=== PATIENT | male | born 1970 | race Hispanic/Latino ===

== ENCOUNTER 2020-05-06 23:24 | Inpatient (IN) | payer OTHER, SELFPAY ==
[2020-05-07 00:16] LABS: Absolute Lymphocytes (CBC) 3.6 K/uL (0.7-4.9); Basophils % 0.9 % (0-1.3); Hematocrit 44.7 % (39.6-49.0); Lymphocytes % 42.1 % (15.3-44.8); MPV 9.5 fL (7.6-11.3); RBC Red Blood Cell Count 5.12 M/uL (4.33-5.43)
[2020-05-07 00:17] LABS: Protime INR 0.97
[2020-05-07 00:41] LABS: ALT/SGPT 44 U/L (12-78); AST/SGOT 21 U/L (15-37); Albumin 4.3 g/dL (3.4-5.0); Alkaline Phosphatase 76 U/L (45-117); BUN Blood Urea Nitrogen 22 mg/dL (7-18); Bicarbonate 23 mmol/L (21-32); Bilirubin Direct < 0.1 mg/dL (0-0.2); Bilirubin Total 0.5 mg/dL (0.2-1.0); Glucose Level 169 mg/dL (74-106); Magnesium 2.2 mg/dL (1.8-2.4); NT PRO-BNP 9 pg/mL (<125); Potassium 3.6 mmol/L (3.5-5.1); Protein, Total 7.7 g/dL (6.4-8.2); Sodium Level 138 mmol/L (136-145); Troponin (Emerg Dept Use Only) < 0.02 ng/mL (0.0-0.045)
--- NOTE | 2020-05-07 01:09 | ER ---
Nurse's Notes [facility] Name: Jed An Age: 50 yrs Sex: Male : 1970 Arrival Date: 05/06/2020 Time: 23:25 Bed 25 Private MD: Nile Albert T Diagnosis: Chest pain Presentation: 05/06 23:34 Chief complaint: Patient states: pt states he is having chest pain, abdominal pain, bb "shocks or jolts" throughout his body today starting this morning also has a headache denies nausea, shortness of breath, dizziness. BP at home 166/100. Coronavirus screen: At this time, the client does not indicate any symptoms associated with coronavirus-19. Ebola Screen: No symptoms or risks identified at this time. Initial Sepsis Screen: Does the patient meet any 2 criteria? No. Patient's initial sepsis screen is negative. Does the patient have a suspected source of infection? No. Patient's initial sepsis screen is negative. Risk Assessment: Do you want to hurt yourself or someone else? Patient reports no desire to harm self or others. Onset of symptoms was May 06, 2020. 23:34 Method Of Arrival: Ambulatory bb 23:34 Acuity: LYSSA 3 bb Triage Assessment: 23:39 General: Appears in no apparent distress. Behavior is calm, cooperative. Pain: bb Complains of pain in chest Pain currently is 6 out of 10 on a pain scale. Neuro: Level of Consciousness is awake, alert, obeys commands, Oriented to person, place, time, situation. Cardiovascular: Heart tones present Capillary refill < 3 seconds Patient's skin is warm and dry. Rhythm is sinus rhythm. Respiratory: Airway is patent Respiratory effort is even, unlabored, Respiratory pattern is regular. GI: Reports upper abdominal pain. Derm: Skin is pink, warm \\T\\ dry. Musculoskeletal: Circulation, motion, and sensation intact. Historical: - Allergies: 23:39 No Known Allergies; bb - Home Meds: 23:39 metformin 750 mg Oral Tb24 1 tab twice a day [Active]; aspirin 81 mg Oral chew 1 tab bb once daily [Active]; metoprolol tartrate 50 mg Oral tab 1 tab once daily [Active]; losartan 50 mg oral tab 1 tab once daily [Active]; - PMHx: 23:39 Diabetes - NIDDM; Hypertension; bb - PSHx: 23:39 Heart stents; heart balloon; bb - Immunization history:: Adult Immunizations up to date. - Social history:: Smoking status: Patient denies any tobacco usage or history of. Patient uses alcohol, Patient/guardian denies using street drugs. Screenin:41 Abuse screen: Denies threats or abuse. Nutritional screening: No deficits noted. bb Tuberculosis screening: No symptoms or risk factors identified. Fall Risk None identified. Assessment: 23:41 Reassessment: No changes from previously documented assessment. see triage assessment. bb 05/07 00:28 General: Appears in no apparent distress. comfortable, Behavior is calm, cooperative. mg2 Pain: Complains of pain in chest Pain radiates to whole body Pain currently is 2 out of 10 on a pain scale. Quality of pain is described as aching, Pain began gradually, Is intermittent. Neuro: Level of Consciousness is awake, alert, obeys commands, Oriented to person, place, time, situation. Cardiovascular: Capillary refill < 3 seconds Patient's skin is warm and dry. Respiratory: Airway is patent Respiratory effort is even, unlabored, Respiratory pattern is regular, symmetrical. GI: No signs and/or symptoms were reported involving the gastrointestinal system. : No signs and/or symptoms were reported regarding the genitourinary system. EENT: No signs and/or symptoms were reported regarding the EENT system. Derm: Skin is intact, is healthy with good turgor, Skin is pink, warm \\T\\ dry. normal. Musculoskeletal: Circulation, motion, and sensation intact. Capillary refill < 3 seconds. 01:09 Reassessment: seen by MALATHI Ybarra-hospitalist. advised for admission. patient agreed. mg2 Vital Signs: 05/06 23:34 BP 164 / 89; Pulse 77; Resp 16 S; Temp 97.7(O); Pulse Ox 100% on R/A; Weight 99.34 kg bb (R); Height 5 ft. 3 in. (160.02 cm) (R); Pain 12/18; 05/07 00:57 BP 140 / 91; Pulse 73; Resp 18; Pulse Ox 99% on R/A; mg2 02:20 BP 134 / 80; Pulse 61; Resp 19; Pulse Ox 99% ; rr5 05/06 23:34 Body Mass Index 38.79 (99.34 kg, 160.02 cm) ED Course: 05/06 23:25 Patient arrived in ED. am2 23:25 Nile Albert MD is Private Physician. am2 23:33 EKG completed in triage. Results shown to MD. bb 23:37 Triage completed. bb 23:39 Arm band placed on. bb 23:41 Patient has correct armband on for positive identification. bb 23:41 Patient maintains SpO2 saturation greater than 95% on room air. bb 23:50 Initial lab(s) drawn, by me, sent to lab. bb 05/07 00:09 Donte Brink, RN is Primary Nurse. mg2 00:16 XRAY Chest (1 view) In Process Unspecified. EDMS 00:17 Brad Reid MD is Attending Physician. pkl 00:29 patient monitor on. Pulse ox on. NIBP on. mg2 00:29 No provider procedures requiring assistance completed. mg2 01:08 Richardson Boone DO is Hospitalizing Provider. pkl 02:30 Inserted saline lock: 20 gauge in left forearm, using aseptic technique. rr5 02:40 covid. rr5 02:43 Patient admitted, IV remains in place. intact, No redness/swelling at site. rr5 Administered Medications: No medications were administered Outcome: 01:08 Decision to Hospitalize by Provider. pkl 02:44 Admitted to ER Hold. Please see [facility] for further documentation. rr5 02:44 Condition: stable 02:44 Instructed on the need for admit. 09:50 Patient left the ED. Signatures: Dispatcher [employer] EDDE Brad Reid MD MD pkConsuelo Jimenez RN RN bb Sofía Sigala RN RN Rehana Hatfield am2 Donte Brink, NOEMÍ DOWD mg2 Peewee Tilley, RN RN rr5
--- NOTE | 2020-05-07 01:09 | EDPHYS ---
Physician Documentation [facility] Name: Jed An Age: 50 yrs Sex: Male : 1970 Arrival Date: 05/06/2020 Time: 23:25 Bed 25 Private MD: Nile Albert T ED Physician Brad Reid HPI: 05/07 00:30 This 50 yrs old Male presents to ER via Ambulatory with complaints of Chest pkl Pain > 30 y/o, High Blood Pressure. 00:30 The patient or guardian reports chest pain that is located primarily in the substernal pkl area, epigastric area. Onset: just prior to arrival, 4 hour(s) ago. The pain does not radiate. Associated signs and symptoms: Pertinent positives: headache, having shocks all over body since this morning. The chest pain is described as a pressure. The patient has experienced a previous episode, approximately 5 years ago, when he had cardiac stents placement. Historical: - Allergies: 05/06 23:39 No Known Allergies; bb - Home Meds: 23:39 metformin 750 mg Oral Tb24 1 tab twice a day [Active]; aspirin 81 mg Oral chew 1 tab bb once daily [Active]; metoprolol tartrate 50 mg Oral tab 1 tab once daily [Active]; losartan 50 mg oral tab 1 tab once daily [Active]; - PMHx: 23:39 Diabetes - NIDDM; Hypertension; bb - PSHx: 23:39 Heart stents; heart balloon; bb - Immunization history:: Adult Immunizations up to date. - Social history:: Smoking status: Patient denies any tobacco usage or history of. Patient uses alcohol, Patient/guardian denies using street drugs. ROS: 05/07 00:30 Eyes: Negative for injury, pain, redness, and discharge, ENT: Negative for injury, pkl pain, and discharge, Neck: Negative for injury, pain, and swelling. Cardiovascular: Positive for chest pain, of the substernal and epigastric regions. Respiratory: Negative for cough, shortness of breath. Abdomen/GI: Negative for abdominal pain, nausea, vomiting, and diarrhea. Back: Negative for acute changes. : Negative for urinary symptoms. MS/extremity: Negative for acute changes. Skin: Negative for rash. Neuro: Negative for altered mental status, loss of consciousness. Exam: 00:30 Head/Face: Normocephalic, atraumatic. Eyes: Pupils equal round and reactive to light, pkl extra-ocular motions intact. Lids and lashes normal. Conjunctiva and sclera are non-icteric and not injected. Cornea within normal limits. Periorbital areas with no swelling, redness, or edema. ENT: Nares patent. No nasal discharge, no septal abnormalities noted. Tympanic membranes are normal and external auditory canals are clear. Oropharynx with no redness, swelling, or masses, exudates, or evidence of obstruction, uvula midline. Mucous membranes moist. Neck: Trachea midline, no thyromegaly or masses palpated, and no cervical lymphadenopathy. Supple, full range of motion without nuchal rigidity, or vertebral point tenderness. No Meningismus. Chest/axilla: Normal chest wall appearance and motion. Nontender with no deformity. No lesions are appreciated. Cardiovascular: Regular rate and rhythm with a normal S1 and S2. No gallops, murmurs, or rubs. Normal PMI, no JVD. No pulse deficits. Respiratory: Lungs have equal breath sounds bilaterally, clear to auscultation and percussion. No rales, rhonchi or wheezes noted. No increased work of breathing, no retractions or nasal flaring. Abdomen/GI: Soft, non-tender, with normal bowel sounds. No distension or tympany. No guarding or rebound. No evidence of tenderness throughout. Back: No spinal tenderness. No costovertebral tenderness. Full range of motion. Skin: Warm, dry with normal turgor. Normal color with no rashes, no lesions, and no evidence of cellulitis. MS/ Extremity: Pulses equal, no cyanosis. Neurovascular intact. Full, normal range of motion. Neuro: Awake and alert, GCS 15, oriented to person, place, time, and situation. Cranial nerves II-XII grossly intact. Motor strength 5/5 in all extremities. Sensory grossly intact. Cerebellar exam normal. Normal gait. Vital Signs: 05/06 23:34 BP 164 / 89; Pulse 77; Resp 16 S; Temp 97.7(O); Pulse Ox 100% on R/A; Weight 99.34 kg bb (R); Height 5 ft. 3 in. (160.02 cm) (R); Pain /10; 05/07 00:57 BP 140 / 91; Pulse 73; Resp 18; Pulse Ox 99% on R/A; mg2 02:20 BP 134 / 80; Pulse 61; Resp 19; Pulse Ox 99% ; rr5 05/06 23:34 Body Mass Index 38.79 (99.34 kg, 160.02 cm) bb MDM: 00:17 Patient medically screened. pkl 01:06 Data reviewed: vital signs, nurses notes, lab test result(s), EKG, radiologic studies, pkl plain films. ED course: Talked to Tate Laureano for observation ( Dr. Boone ). 05/06 23:42 Order name: Basic Metabolic Panel; Complete Time: 01:06 05/06 23:42 Order name: CBC with Diff; Complete Time: : 05/06 23:42 Order name: LFT's; Complete Time: 01: 05/06 23:42 Order name: Magnesium; Complete Time: 01: 05/06 23:42 Order name: NT PRO-BNP; Complete Time: 01: 05/06 23:42 Order name: PT-INR; Complete Time: 01: 05/06 23:42 Order name: Troponin (emerg Dept Use Only); Complete Time: 01: 05/07 02:37 Order name: COVID-19 rr5 05/07 04:51 Order name: CBC with Automated Diff; Complete Time: 19:03 [facility] 05/07 05:16 Order name: Troponin I; Complete Time: 19:03 [facility] 05/07 05:25 Order name: Basic Metabolic Panel; Complete Time: 19:03 [facility] 05/07 05:25 Order name: Lipid Profile; Complete Time: 19:03 [facility] 05/07 05:25 Order name: T4 Free; Complete Time: 19:03 [facility] 05/07 05:25 Order name: Magnesium; Complete Time: 19:03 [facility] 05/06 23:42 Order name: XRAY Chest (1 view); Complete Time: 19:03 05/06 23:42 Order name: EKG; Complete Time: 23:43 05/06 23:42 Order name: Cardiac monitoring; Complete Time: 00:09 05/06 23:42 Order name: EKG - Nurse/Tech; Complete Time: 00:09 05/06 23:42 Order name: IV Saline Lock; Complete Time: 00:09 05/06 23:42 Order name: Labs collected and sent; Complete Time: 00:09 bb 05/06 23:42 Order name: O2 Per Protocol; Complete Time: 00:09 bb 05/06 23:42 Order name: O2 Sat Monitoring; Complete Time: 00:09 bb 05/07 05:25 Order name: Thyroid Stimulating Hormone; Complete Time: 19:03 EDMS 05/07 05:36 Order name: LDL, Direct; Complete Time: 19:03 EDMS 05/07 07:15 Order name: Diet Heart Healthy; Complete Time: 07:16 ph 05/07 07:26 Order name: CORONAVIRUS EDMS 05/07 07:50 Order name: Glucose, Ancillary Testing; Complete Time: 19:03 EDMS 05/07 08:37 Order name: SARS-COV-2 RT PCR; Complete Time: 19:03 EDMS Administered Medications: No medications were administered Disposition: 05/07/20 01:08 Hospitalization ordered by Richardson Boone for Observation. Preliminary diagnosis is Chest pain. - Bed requested for [facility] ER HOLD. - Status is Observation. ss - Condition is Stable. - Problem is new. - Symptoms are unchanged. Signatures: Dispatcher [employer] EDMS Brad Reid MD MD pkl Ballard, Brenda, NOEMÍ RN Sofía Horton, NOEMÍ DOWD ss Tracie Duran, NOEMÍ RN tl1 Corrections: (The following items were deleted from the chart) 02:15 01:08 Hospitalization Ordered by Richardson Boone DO for Observation. Preliminary tl1 diagnosis is Chest pain. Bed requested for Telemetry/MedSurg (observation). Status is Observation. Condition is Stable. Problem is new. Symptoms are unchanged. pkl 07:01 02:15 05/07/2020 01:08 Hospitalization Ordered by Richardson Boone DO for Observation. tl1 Preliminary diagnosis is Chest pain. Bed requested for [facility] ER HOLD. Status is Observation. Condition is Stable. Problem is new. Symptoms are unchanged. tl1 07:02 07:01 05/07/2020 01:08 Hospitalization Ordered by Richardson Boone DO for Observation. tl1 Preliminary diagnosis is Chest pain. Bed requested for Telemetry/MedSurg (observation). Status is Observation. Condition is Stable. Problem is new. Symptoms are unchanged. tl1 07:54 07:02 05/07/2020 01:08 Hospitalization Ordered by Richardson Boone DO for Observation. ss Preliminary diagnosis is Chest pain. Bed requested for Telemetry/MedSurg (observation). Status is Observation. Condition is Stable. Problem is new. Symptoms are unchanged. tl1 07:55 07:54 05/07/2020 01:08 Hospitalization Ordered by Richardson Boone DO for Observation. ss Preliminary diagnosis is Chest pain. Bed requested for [facility] ER HOLD. Status is Observation. Condition is Stable. Problem is new. Symptoms are unchanged. ss 09:50 07:55 05/07/2020 01:08 Hospitalization Ordered by Richardson Boone DO for Observation. ss Preliminary diagnosis is Chest pain. Bed requested for [facility] ER HOLD. Status is Observation. Condition is Stable. Problem is new. Symptoms are unchanged. ss
[2020-05-07] MEDS ORDERED: MORPHINE 2 MG/ML SYR IV PRN (02:30)
[2020-05-07] MEDS ORDERED: ONDANSETRON 4 MG/2 ML VIAL IV PRN (02:30)
[2020-05-07] MEDS ORDERED: ACETAMINOPHEN 500 MG TAB PO PRN (02:30)
--- NOTE | 2020-05-07 02:45 | P.HP ---
Certification for Inpatient Patient admitted to: Observation With expected LOS: <2 Midnights Patient will require the following post-hospital care: None Practitioner: I am a practitioner with admitting privileges, knowledge of patient current condition, hospital course, and medical plan of care. Services: Services provided to patient in accordance with Admission requirements found in Title 42 Section 412.3 of the Code of Federal Regulations <SrideviTate - Filed: 05/07/20 02:41> Patient admitted to: Observation With expected LOS: <2 Midnights <Richardson Boone - Last Filed: 05/07/20 12:50> Patient History Date of Service: 05/07/20 Primary Care Provider: Dr. Albert Reason for admission: Chest pain History of Present Illness: 50-year-old male with history of CAD with stent placement, diabetes mellitus type 2, hypertension presents emergency department for chest/epigastric pain patient reports pain is sharp, occurred at rest, was nonradiating and was not exacerbated or relieved by anything. Patient reports that he had stent placement in [address] Hurst and was having similar symptoms at that time, the patient has not had further cardiac workup since that time. Patient saw his PCP today and was noted to be hypertensive, was started on new medication losartan in addition to his metoprolol the he already takes. Patient's workup in the emergency department unremarkable, troponin negative, chest x-ray unremarkable, EKG without acute findings. ED provider wishes to admit patient for further evaluation and management. When I saw the patient in the emergency department is awake, alert, or x3. Patient denies chest pain at this time. Patient be admitted for further evaluation and management. - Past Medical/Surgical History Diabetic: Yes -: Diabetes mellitus type 2 -: Hypertension -: Balloon Angioplasty -: Heart stent Psychosocial/ Personal History: Patient lives with his family and is currently self-employed - Family History Father -: Heart disease Notes: quadruple bypasses - Social History Smoking Status: Never smoker Alcohol use: Yes CD- Drugs: No Caffeine use: Yes Place of Residence: Home <Tate Laureano - Last Filed: 05/07/20 02:41> Date of Service: 05/07/20 Home medications list reviewed: Yes <Richardson Boone - Last Filed: 05/07/20 12:50> Allergies No Known Allergies Allergy (Unverified 03/21/13 14:50) Home Medications: Aspirin Chewable [Aspirin Chewable*] 81 mg PO DAILY 05/07/20 Docosahexanoic AC/Epa [Fish Oil 1,000 MG*] 2,000 mg PO BID #120 cap 05/07/20 Losartan Potassium 50 mg PO DAILY 05/07/20 Metformin HCl [Glucophage XR OR ER] 750 mg PO BID 05/07/20 Metoprolol Tartrate 50 mg PO DAILY 05/07/20 Review of Systems 10-point ROS is otherwise unremarkable Cardiovascular: Chest Pain <Tate Laureano - Last Filed: 05/07/20 02:41> Physical Examination - Physical Exam General: Alert, In no apparent distress HEENT: Atraumatic, PERRLA, Mucous membr. moist/pink Neck: Supple, 2+ carotid pulse no bruit, No LAD Respiratory: Clear to auscultation bilaterally, Normal air movement Cardiovascular: Regular rate/rhythm, Normal S1 S2 Gastrointestinal: Normal bowel sounds, No tenderness Musculoskeletal: No tenderness Integumentary: No rashes Neurological: Normal speech, Normal strength at 5/5 x4 extr, Normal tone, Normal affect - Studies Laboratory Data (last 24 hrs) 05/06/20 23:50: PT 11.5, INR 0.97 05/06/20 23:50: WBC 8.7, Hgb 15.7, Hct 44.7, Plt Count 195 05/06/20 23:50: Sodium 138, Potassium 3.6, BUN 22 H, Creatinine 0.94, Glucose 169 H, Magnesium 2.2, Total Bilirubin 0.5, AST 21, ALT 44, Alkaline Phosphatase 76 <Tate Laureano - Last Filed: 05/07/20 02:41> - Studies Laboratory Data (last 24 hrs) 05/07/20 04:25: Sodium 139, Potassium 3.7, BUN 22 H, Creatinine 0.98, Glucose 181 H, Magnesium 2.2, Triglycerides 563 H, Cholesterol 174, LDL Cholesterol Direct 65 L, HDL Cholesterol 30 L, Cholesterol/HDL Ratio 5.80 05/07/20 04:25: WBC 7.4 D, Hgb 14.9, Hct 42.2, Plt Count 169 05/07/20 04:25: Troponin I < 0.02 05/06/20 23:50: PT 11.5, INR 0.97 05/06/20 23:50: WBC 8.7, Hgb 15.7, Hct 44.7, Plt Count 195 05/06/20 23:50: Sodium 138, Potassium 3.6, BUN 22 H, Creatinine 0.94, Glucose 169 H, Magnesium 2.2, Total Bilirubin 0.5, AST 21, ALT 44, Alkaline Phosphatase 76 <Richardson Boone - Last Filed: 05/07/20 12:50> Assessment and Plan - Plan Assessment Chest pain rule out ACS Diabetes mellitus type 2 Hypertension Plan Chest pain rule out ACS: Trend troponins, cardiology consult in place, monitor on telemetry. DVT prophylaxis Lovenox 40 mg subcutaneous once daily. NPO until cardiology has seen patient. Continue metoprolol, aspirin. Added for statin and check lipid panel with morning labs. Diabetes mellitus type 2: A.c. HS Accu-Cheks, sliding scale insulin therapy. Hypertension: Continue metoprolol and losartan Discharge Plan: Home Plan to discharge in: 24 Hours - Advance Directives Does patient have a Living Will: No Does patient have a Durable POA for Healthcare: No - Code Status/Comfort Care Code Status Assessed: Yes (Full code) Critical Care: No Time Spent Managing Pts Care (In Minutes): 55 <Tate Laureano - Last Filed: 05/07/20 02:41> - Plan Case discussed at length with nurse practitioner. Agree with assessment, plan of care. Case also discussed with Cardiology. Plan for discharge. Please review use discharge summary for details. <Richardson Boone - Last Filed: 05/07/20 12:50>
[2020-05-07 02:49] VITALS: BMI 38.7
[2020-05-07 04:40] LABS: Absolute Lymphocytes (CBC) 2.7 K/uL (0.7-4.9); Hematocrit 42.2 % (39.6-49.0); Lymphocytes % 36.6 % (15.3-44.8); MPV 9.2 fL (7.6-11.3); RBC Red Blood Cell Count 4.91 M/uL (4.33-5.43)
[2020-05-07 05:18] LABS: BUN Blood Urea Nitrogen 22 mg/dL (7-18); Bicarbonate 26 mmol/L (21-32); Glucose Level 181 mg/dL (74-106); HDL Cholesterol 30 mg/dL (40-60); Sodium Level 139 mmol/L (136-145)
[2020-05-07 05:24] LABS: Magnesium 2.2 mg/dL (1.8-2.4); Potassium 3.7 mmol/L (3.5-5.1)
[2020-05-07 05:35] LABS: LDL, Direct 65 mg/dL (100-129)
[2020-05-07] MEDS ORDERED: METOPROLOL XL 50 MG TAB PO ONE (05:48)
[2020-05-07] MEDS ORDERED: METOPROLOL XL 50 MG TAB PO SCH (06:00)
[2020-05-07] MEDS ORDERED: POTASSIUM CL SA 10 MEQ TAB PO ONE ×2 (06:46→07:00)
[2020-05-07] MEDS ORDERED: INSULIN -REGULAR HUMAN 50 UNIT/0.5 ML ML SQ SCH (07:30)
--- NOTE | 2020-05-07 08:37 | P.DS ---
Admission Date: 05/07/20 Discharge Date: 05/07/20 Primary Care Provider: Dr. Albert Disposition: ROUTINE DISCHARGE Discharge Condition: GOOD Reason for Admission: Chest pain Consultations: Cardiology-Dr. Hurst Procedures: Medical problem List Chest pain rule with history of CAD/stent Diabetes mellitus type 2 with hyperglycemia Hypertriglyceridemia Hypertension Obesity, BMI 38.8 out ACS Brief History of Present Illness: 50-year-old male with history of CAD/stent, diabetes mellitus type 2, hypertension. Patient presented with chest pain. It was non radiating. Patient reports prior stent placement done in 2012. Patient was hypertensive and started new medication recently. Patient was admitted for further evaluation and treatment. Hospital Course: Patient presented with chest pain. Patient with history of CAD and prior stent. Patient was observed. Cardiac enzymes unremarkable. Patient was seen by his cargo service agent-Dr. Hurst. Cardiology recommended no further intervention at this time. Chest pain resolved. At discharge patient will continue with aspirin 81 mg daily. Patient will follow up with cardiology within 1-2 weeks. Patient will have outpatient cardiac evaluation within the next 1-2 weeks. Patient with hypertension. Blood pressure was elevated. Patient recently start ed new medication including losartan. Recommend to continue losartan 50 mg daily along with Toprol-XL 50 mg daily. Recommend to maintain blood pressure less than 130/80. Further adjustment in medication may be required. This can be done with the help of cardiology or his PCP. Patient with diabetes mellitus type 2. Hyperglycemia noted. Patient had A1c done yesterday with his PCP. Patient may continue with his metformin 750 mg 1 pill twice daily. Recommend a follow up with his PCP within 1 week to follow up his A1c. If elevated further adjustment or additional medication may be required. This can be done with the help of his PCP. Recommend to maintain blood sugar less than 140 fasting and less than 200 after meals. Patient had fasting lipid panel evaluated. LDL 65. Triglycerides 563. Recommend to start fish oil. At discharge he will continue with fish oil 2000 mg 1 pill twice daily. Dietary and lifestyle modification provided. Recommend to recheck fasting lipid panel in 4-6 weeks to monitor his progress. Further adjustment or additional medication may be required. Strict hypertension and diabetic control will need to be continued. Vital Signs/Physical Exam: Temp Pulse Resp BP Pulse Ox 98 F 85 19 145/86 H 99 05/07/20 04:00 05/07/20 06:00 05/07/20 06:00 05/07/20 06:00 05/07/20 06:00 General: Alert, In no apparent distress, Oriented x3, Cooperative HEENT: Atraumatic Neck: Supple Respiratory: Clear to auscultation bilaterally, Normal air movement Cardiovascular: Normal pulses, Regular rate/rhythm Gastrointestinal: Normal bowel sounds, Soft and benign, Non-distended, No tenderness, No masses, No rebound, No guarding Musculoskeletal: No erythema, No tenderness, No warmth Integumentary: No tenderness/swelling, No erythema, No warmth, No cyanosis Neurological: Normal speech, Normal strength at 5/5 x4 extr, Normal tone, Normal affect Laboratory Data at Discharge: WBC 7.4 K/uL (4.3-10.9) D 05/07/20 04:25 Hgb 14.9 g/dL (13.6-17.9) 05/07/20 04:25 Hct 42.2 % (39.6-49.0) 05/07/20 04:25 Plt Count 169 K/uL (152-406) 05/07/20 04:25 PT 11.5 SECONDS (9.5-12.5) 05/06/20 23:50 INR 0.97 05/06/20 23:50 Sodium 139 mmol/L (136-145) 05/07/20 04:25 Potassium 3.7 mmol/L (3.5-5.1) 05/07/20 04:25 BUN 22 mg/dL (7-18) H 05/07/20 04:25 Creatinine 0.98 mg/dL (0.55-1.3) 05/07/20 04:25 Glucose 181 mg/dL (74-106) H 05/07/20 04:25 Magnesium 2.2 mg/dL (1.8-2.4) 05/07/20 04:25 Total Bilirubin 0.5 mg/dL (0.2-1.0) 05/06/20 23:50 AST 21 U/L (15-37) 05/06/20 23:50 ALT 44 U/L (12-78) 05/06/20 23:50 Alkaline Phosphatase 76 U/L (45-117) 05/06/20 23:50 Troponin I < 0.02 ng/mL (0.0-0.045) 05/07/20 04:25 Triglycerides 563 mg/dL (<150) H 05/07/20 04:25 Cholesterol 174 mg/dL (<200) 05/07/20 04:25 LDL Cholesterol Direct 65 mg/dL (100-129) L 05/07/20 04:25 HDL Cholesterol 30 mg/dL (40-60) L 05/07/20 04:25 Cholesterol/HDL Ratio 5.80 05/07/20 04:25 Home Medications: Aspirin Chewable [Aspirin Chewable*] 81 mg PO DAILY 05/07/20 Docosahexanoic AC/Epa [Fish Oil 1,000 MG*] 2,000 mg PO BID #120 cap 05/07/20 Losartan Potassium 50 mg PO DAILY 05/07/20 Metformin HCl [Glucophage XR OR ER] 750 mg PO BID 05/07/20 Metoprolol Tartrate 50 mg PO DAILY 05/07/20 New Medications: Docosahexanoic AC/Epa [Fish Oil 1,000 MG*] 2,000 mg PO BID #120 cap Patient Discharge Instructions: 1. Recommend follow up with PCP within 1 week to follow up this hospitalization. 2. Patient presented with chest pain. Patient with history of CAD and prior stent. Patient was observed. Cardiac enzymes unremarkable. Patient was seen by his cargo service agent-Dr. Hurst. Cardiology recommended no further intervention at this time. Chest pain resolved. At discharge patient will continue with aspirin 81 mg daily. Patient will follow up with cardiology within 1-2 weeks. Patient will have outpatient cardiac evaluation within the next 1-2 weeks. 3. Patient with hypertension. Blood pressure was elevated. Patient recently started new medication including losartan. Recommend to continue losartan 50 mg daily along with Toprol-XL 50 mg daily. Recommend to maintain blood pressure less than 130/80. Further adjustment in medication may be required. This can be done with the help of cardiology or his PCP. 4. Patient with diabetes mellitus type 2. Hyperglycemia noted. Patient had A1c done yesterday with his PCP. Patient may continue with his metformin 750 mg 1 pill twice daily. Recommend a follow up with his PCP within 1 week to follow up his A1c. If elevated further adjustment or additional medication may be required. This can be done with the help of his PCP. Recommend to maintain blood sugar less than 140 fasting and less than 200 after meals. 5. Patient had fasting lipid panel evaluated. LDL 65. Triglycerides 563. Recommend to start fish oil. At discharge he will continue with fish oil 2000 mg 1 pill twice daily. Dietary and lifestyle modification provided. Recommend to recheck fasting lipid panel in 4-6 weeks to monitor his progress. Further adjustment or additional medication may be required. Strict hypertension and diabetic control will need to be continued. Diet: ADA Activity: Ad sabina Followup: Nile Albert MD [Primary Care Provider] - Time spent managing pt's care (in minutes): 55
[2020-05-07 08:41] VITALS: BP 138/78; TEMP 97.8
[2020-05-07] MEDS ORDERED: LOSARTAN POTASSIUM 50 MG TABLET PO SCH (09:00)
[2020-05-07] MEDS ORDERED: ENOXAPARIN 40 MG/0.4 ML SQ SCH (09:00)
[2020-05-07] MEDS ORDERED: ASPIRIN EC 81 MG TAB PO SCH (09:00)
[2020-05-07] MEDS ORDERED: DOCOSAHEXANOIC AC/EPA 1000 MG PO SCH (09:00)
--- NOTE | 2020-05-07 09:15 | RAD REPORT ---
EXAM DESCRIPTION: RAD - Chest Single View - 05/07/2020 12:16 am CLINICAL HISTORY: CHEST PAIN Chest pain. COMPARISON: CHEST PA AND LAT 2 VIEW dated 06/18/2013; CHEST SINGLE VIEW dated 03/21/2013 FINDINGS: Portable technique limits examination quality. The lungs are grossly clear. The heart is normal in size. No displaced fractures. IMPRESSION: No acute intrathoracic process suspected.
[2020-05-07 10:34] VITALS: O2SAT 99
[2020-05-07] MEDS ORDERED: ATORVASTATIN 40 MG TAB PO SCH (21:00)
--- NOTE | 2020-05-08 05:34 | CON ---
Date of Consultation: 05/07/2020 Reason For Consultation: Chest pain. History Of Present Illness: Mr. An is a 50-year-old male with history of coronary artery disea se. He had a coronary intervention in 2013. He has a history of hypertension, diabetes, came in wit h chest pain that is described as shocks around his body, headaches. No nausea, vomiting, diaphoresi s, PND, orthopnea, pedal edema, palpitations, or syncope. By the time I saw him, he has already rule d out for an NC. His pain was not exertional. He said it felt different than his previous angina at [facility] in 2012. He had not had much of cardiac followup since then. Past Medical History: As stated above. Allergies: NONE. Review of Systems: Negative. Social History: Negative. Family History: Negative. Medications: At home include aspirin, metformin, metoprolol, losartan. Physical Examination: Vital Signs: Stable. Afebrile. HEENT: Negative. Neck: Supple with no bruit. Chest: Clear. Cardiac: Reveals a regular rhythm and rate without any murmurs, gallops, or rubs. Abdomen: Benign. Extremities: Reveal no clubbing, cyanosis, or edema. Diagnostic Data: Positive for an elevated triglyceride. Rest of his blood work was negative. EKG a nd chest x-ray and troponin were negative. Impression And Plan: Atypical chest pain in a patient with coronary artery disease, status post sten t in 2012. No recent cardiac workup. I think he needs to have an outpatient echo and an MPI and I w ill make arrangements for that. He can go home otherwise. Continue his present regimen. Consider Tre Goncalves for his hypertriglyceridemia. His other problems including diabetes and hypertension seemed to be stable. FRANCIS/MODL Voice ID: [id number] Report ID: [id number]
== END 2020-05-07 09:54 | disposition home or self-care (01) | DRG 313 ==
LOC: ER 23:24 → ERHOLD 05-07 02:16 → OBSVTOIN 05-07 07:04
PROVIDERS: ADMIT Family Medicine; ATTEND Family Medicine
DX: R07.89 Other chest pain (principal); I10 Essential (primary) hypertension; I25.10 Atherosclerotic heart disease of native coronary artery without angina pectoris; E11.65 Type 2 diabetes mellitus with hyperglycemia; E78.1 Pure hyperglyceridemia; E66.9 Obesity, unspecified; Z68.38 Body mass index [BMI] 38.0-38.9, adult; Z79.84 Long term (current) use of oral hypoglycemic drugs; Z79.899 Other long term (current) drug therapy; Z95.5 Presence of coronary angioplasty implant and graft; Z79.82 Long term (current) use of aspirin; Z20.828 Contact with and (suspected) exposure to other viral communicable diseases
CPT/HCPCS: 36415; 71045; 80048; 80061; 80076; 82947; 83735; 83880; 84439; 84443; 84484; 85025; 85610; 93005; 99285; G0378; U0003

== ENCOUNTER 2024-04-23 13:21 | Emergency (ER) | payer SELFPAY ==
[2024-04-23] MEDS ORDERED: MECLIZINE HCL 12.5 MG TAB ONE (14:33)
[2024-04-23] MEDS ORDERED: NA CHLORIDE 0.9% 500 ML ONE (14:33)
[2024-04-23 14:34] LABS: Absolute Basophils 0.1 K/uL (0-0.5); Absolute Lymphocytes (CBC) 1.3 K/uL (0.7-4.9); Absolute Monocytes 0.6 K/uL (0.1-1.3); Absolute Neutrophil 6.4 K/uL (1.8-8.0); Basophils % 0.9 % (0-1.3); Eosinophils % 0.3 % (0-4.4); Hematocrit 44.4 % (39.6-49.0); Hemoglobin 15.5 g/dL (13.6-17.9); Lymphocytes % 15.1 % (15.3-44.8); MCH 30.1 pg (27.0-35.0); MCHC 34.9 g/dL (32.0-36.0); MCV 86.4 fL (80-100); MPV 8.1 fL (7.6-11.3); Monocytes % 6.9 % (3.3-12.3); Neutrophils % 76.8 % (41.7-73.7); Nucleated Red Blood Cells % 0.1 % (0-0); Platelets 180 thou/uL (152-406); RBC Red Blood Cell Count 5.14 M/uL (4.33-5.43); Red Cell Distribution Width 12.9 % (12.1-15.2)
[2024-04-23 14:46] LABS: PT Prothrombin Time 12.8 SECONDS (9.4-12.5); PTT, Activated Partial Thromb 31.7 SECONDS (24.3-36.9); Protime INR 1.15
[2024-04-23 14:57] LABS: Magnesium 2.1 mg/dL (1.6-2.4)
--- NOTE | 2024-04-23 15:52 | RAD REPORT ---
EXAM: Head Brain Wo Cont HISTORY: DIZZINESS COMPARISON: 03/21/2013 TECHNIQUE: Multiple contiguous axial images were obtained for a CT of the brain without contrast. Sag ittal and coronal reformats were performed. One or more of the following dose reduction techniques were used: Automated exposure control, adjus tment of the mA and kV according to patient size, and iterative reconstruction. Unless otherwise specified, incidental findings do not require dedicated imaging follow-up. FINDINGS: No evidence of hydrocephalus, intracranial hemorrhage, or extra-axial fluid collection. The brain is normal in morphology. Small calcified right falcine granuloma, stable. The calvarium is intact. The visualized paranasal sinuses and mastoid air cells are essentially clear . IMPRESSION: No evidence of acute intracranial abnormality.
--- NOTE | 2024-04-23 16:22 | RAD REPORT ---
EXAMINATION: CTA HEAD CLINICAL INDICATION: Male, 53 years old. DIZZINESS TECHNIQUE: Axial CT images were obtained through the head after intravenous contrast utilizing angiog raphic protocol with 3D post-processing (maximum intensity projection images, volume rendered images and/or shaded surface rendered images). One or more of the following dose reduction technique s were used: Automated exposure control, adjustment of the mA and/or kV according to patient size, and/or iterative reconstruction. Unless otherwise specified, incidental findings do not require dedic ated imaging follow-up. COMPARISON: No prior exam. FINDINGS: ICA: The petrous, cavernous, and supraclinoid segments of the bilateral internal carotid arteries are normal. The ophthalmic artery origins are visualized and normal. The posterior communicating arteries are patent. BREONNA: Anterior cerebral arteries are normal bilaterally. The anterior communicating artery is patent. MCA: Middle cerebral arteries are normal bilaterally. BLANKBOOK STITCHING MACHINE OPERATOR: Posterior cerebral arteries are normal bilaterally. Vertebrobasilar: The vertebral arteries are patent. The basilar artery is normal in appearance. 3D images confirm these findings. IMPRESSION: Normal head CTA.
--- NOTE | 2024-04-23 17:10 | RAD REPORT ---
EXAMINATION: Neck Angio CLINICAL INDICATION: Male, 53 years old. [facility] MA[facility] dizziness x 3 days Bed Name: 6 TECHNIQUE: Axial CT images were obtained from the aortic arch to the skull base after intravenous con trast utilizing angiographic protocol. Multiplanar reformats, as well as 3D post-processing (maximum intensity projection images, volume rendered images and/or shaded surface rendered images) w ere generated and reviewed. One or more of the following dose reduction techniques were used: Automated exposure control, adjustment of the mA and/or kV according to patient size, and/or iterativ e reconstruction. Unless otherwise specified, incidental findings do not require dedicated imaging follow-up. COMPARISON: No prior exam. FINDINGS: AORTA: The imaged aortic arch is normal. Normal three-vessel configuration of the arch. CCA: No artifact The common carotid arteries are patent and normal in caliber. ICA/ECA: Bilateral internal and external carotid arteries are patent. There is no significant interna l carotid artery stenosis. VERTEBRAL: The cervical vertebral arteries are patent to the skull base. Vertebral arteries are codom inant. SOFT TISSUE: No significant neck soft tissue abnormalities. The visualized lung apices are clear. Inc identally noted right thyroid lobe hypoattenuating 1.6 cm nodule. 3D images confirm these findings. IMPRESSION: No significant flow abnormality of the neck vessels is identified. Incidentally noted the right thyroid 1.6 cm nodule. NASCET criteria used to quantify ICA stenosis, with the following grading scheme: Mild 0-49% stenosis Moderate 50-69% stenosis Severe 70-99% stenosis Reference: [place] Symptomatic Carotid Endarterectomy Trial Collaborators; Stacey RIVERAM, Marcia DW, Sam RB, et al. Beneficial effect of carotid endarterectomy in symptomatic patients with high-grade carotid stenosis. N Engl J Med. 1990Feb 22;325(7):445-53. Recommendations for f/u of Incidental Thyroid Nodules (ITN) found on CT, MR, NM and Extrathyroidal US are based upon the ACR white paper and [place] 3-tiered system for managing ITNs: 1.Further Evaluation by Thyroid US recommended for: -Solitary ITN with high risk imaging features (locally invasive nodule or suspicious lymph nodes) -Solitary ITN of any size in pediatric pts. <= 18 years of age -Solitary ITN >= 1 cm in axial plane in pts. between 18 and 35 years of age -Solitary ITN >= 1.5 cm in axial plane in pts >= 35 years of age -Heterogeneous enlarged thyroid gland -ITN avid on FDG-PET or other nuclear medicine (MIBI and octreotide) scans. FNA biopsy is also recommended for PET avid nodules. 2.No f/u imaging is recommended for ITNs not meeting the above criteria. 3.For multiple thyroid nodules, the above recommendations for solitary ITN are to be applied to the l argest nodule. 4.No US or f/u recommended for ITNs without high risk features in pts. with limited life expectancy o r significant co-morbidities, unless clinically warranted. 5.These recommendations do not apply to pts. w/ increased risk for thyroid cancer or pts. One is symp tomatic thyroid disease. Reference: J Am Nicholas Radiol. 2015 Aug;12(2): 143-50
--- NOTE | 2024-04-23 17:17 | ER ---
Nurse's Notes [facility] Name: Jed An Age: 53 yrs Sex: Male : 1970 Arrival Date: 04/23/2024 Time: 13:21 Bed 6 Private MD: Diagnosis: Dizziness and giddiness;Dehydration;Vertigo Presentation: 04/23 13:58 Chief complaint: Patient states: dizzy since Tuesday night. Feels like the room is tm6 spinning. Worse when I bend over. Stomach cramps x6 months. Coronavirus screen: Client denies travel out of the [place] in the last 14 days. Ebola Screen: Patient negative for fever greater than or equal to 101.5 degrees Fahrenheit, and additional compatible Ebola Virus Disease symptoms Patient denies exposure to infectious person. Patient denies travel to an Ebola-affected area in the 21 days before illness onset. No symptoms or risks identified at this time. Initial Sepsis Screen: Does the patient meet any 2 criteria? HR > 90 bpm. Does the patient have a suspected source of infection? No. Patient's initial sepsis screen is negative. Risk Assessment: Do you want to hurt yourself or someone else? Patient reports no desire to harm self or others. Onset of symptoms was April 20, 2024. 13:58 Method Of Arrival: Ambulatory tm6 13:58 Acuity: LYSSA 3 tm6 Triage Assessment: 14:00 General: Appears in no apparent distress. Behavior is calm, cooperative. Pain: tm6 Complains of pain in abdomen Quality of pain is described as crampy, Pain began 6 months ago. EENT: No signs and/or symptoms were reported regarding the EENT system. Neuro: Level of Consciousness is awake, alert, obeys commands, Oriented to person, place, time, situation, Reports dizziness, since Tuesday. Cardiovascular: Patient's skin is warm and dry. Respiratory: Airway is patent Respiratory effort is even, unlabored, Respiratory pattern is regular, symmetrical. GI: No signs and/or symptoms were reported involving the gastrointestinal system. Abdomen is round. : No signs and/or symptoms were reported regarding the genitourinary system. Derm: No signs and/or symptoms reported regarding the dermatologic system. Musculoskeletal: No signs and/or symptoms reported regarding the musculoskeletal system. Historical: - Allergies: 13:59 No Known Allergies; tm6 - PMHx: 13:59 Diabetes - NIDDM; Diabetes - NIDDM; Hypertension; tm6 - PSHx: 13:59 coronary stent (Hypertension); tm6 - Immunization history:: Client reports receiving the 2nd dose of the Covid vaccine. - Infectious Disease History:: Denies. - Social history:: Smoking status: Patient denies any tobacco usage or history of. Patient/guardian denies using alcohol. - Family history:: not pertinent. - Hospitalizations: : No recent hospitalization is reported. Screenin:[address] [facility] ED Fall Risk Assessment (Adult) History of falling in the last 3 months, bp including since admission No falls in past 3 months (0 pts) Confusion or Disorientation No (0 pts) Intoxicated or Sedated No (0 pts) Impaired Gait No (0 pts) Mobility Assist Device Used No (0 pt) Altered Elimination No (0 pt) Score/Fall Risk Level 0 - 2 = Low Risk. Abuse screen: Denies threats or abuse. Denies injuries from another. Nutritional screening: No deficits noted. Tuberculosis screening: No symptoms or risk factors identified. Assessment: 14:38 Reassessment: Patient is alert, oriented x 3, equal unlabored respirations, skin aa5 warm/dry/pink. 15:03 Reassessment: Pt to CT scan . aa5 Vital Signs: 13:58 BP 167 / 97; Pulse 107; Resp 19; Temp 98.1(TE); Pulse Ox 98% on R/A; MAP 98 mmHg; bp Weight 98.88 kg; Height 5 ft. 3 in. ; Pain 0/10; 17:20 BP 141 / 78; Pulse 94; Resp 16; Pulse Ox 99% ; bp 13:58 Body Mass Index 38.62 (98.88 kg, 160.02 cm) bp 13:58 Pain Scale: Adult bp ED Course: 13:23 Patient arrived in ED. mr 13:26 David Stevens MD is Attending Physician. rn 13:35 Christo Cornejo, NOEMÍ is Primary Nurse. bp 13:59 Triage completed. tm6 13:59 Arm band placed on right wrist. tm6 14:18 EKG done, by ED staff, reviewed by David Stevens MD. aa5 14:23 Initial lab(s) drawn, by ma, sent to lab. Inserted saline lock: 20 gauge in right aa5 antecubital area, using aseptic technique. Blood collected. Flushed with 10 mL NS. 15:30 CT Head Brain wo Cont In Process Unspecified. EDMS 15:[address] In Process Unspecified. EDMS 15:30 Head angio In Process Unspecified. EDMS 17:21 Patient has correct armband on for positive identification. bp 17:28 Provided Education on: N/A. bp 17:28 No provider procedures requiring assistance completed. IV discontinued, intact, bp bleeding controlled, No redness/swelling at site. Pressure dressing applied. Administered Medications: 14:38 Drug: Meclizine PO 50 mg PO once Route: PO; aa5 17:22 Follow up: Response: No adverse reaction bp 14:38 Drug: NS 0.9% IV 500 ml IV at calculated rate once; to be given as a bolus over 30 aa5 minutes Route: IV; Rate: calculated rate; Site: right antecubital; 17:22 Follow up: IV Status: Completed infusion; IV Intake: 500ml bp Intake: 17:22 IV: 500ml; Total: 500ml. bp Outcome: 17:17 Discharge ordered by . rn 17:27 Discharged to home ambulatory, with family, bp 17:27 Condition: stable 17:27 Discharge instructions given to patient, Instructed on discharge instructions, follow up and referral plans. medication usage, Demonstrated understanding of instructions, follow-up care, medications, Prescriptions given X 1, 17:28 Patient left the ED. bp Signatures: Dispatcher [employer] EDAL Remington Monica, Reg Reg David Donaldson MD MD rn Calderon, Audri RN RN aa5 Christo Cornejo RN RN bp Blanquita Santoyo RN RN tm6 Corrections: (The following items were deleted from the chart) 17:22 13:58 BP 167 / 97; Pulse 107bpm; Resp 19bpm; Pulse Ox 98% RA; MAP 98 mmHg; Temp 96.1F bp Temporal; 98.88 kg; Height 5 ft. 3 in.; BMI: 38.6; Pain 0/10, Adult; tm6
--- NOTE | 2024-04-23 17:18 | EDPHYS ---
Physician Documentation [facility] Name: Jed An Age: 53 yrs Sex: Male : 1970 Arrival Date: 04/23/2024 Time: 13:21 Bed 6 Private MD: ED Physician Daivd Stevens HPI: 04/23 14:18 This 53 yrs old Male presents to ER via Ambulatory with complaints of rn Dizziness. 14:18 The patient presents with dizziness, sense of spinning, vertigo. Onset: The rn symptoms/episode began/occurred 3 day(s) ago. Context: occurred at an unknown location, occurred while the patient was. Modifying factors: The symptoms are alleviated by nothing, the symptoms are aggravated by standing up, changing position. Severity of symptoms: At their worst the symptoms were moderate in the emergency department the symptoms have improved. The patient has not experienced similar symptoms in the past. Patient reports episodes of dizziness, feels like the room is spinning, improves when lays down and closes eyes. Worse when he bends over and changes position. No head injury. No history of stroke. Thinks has had vertigo before just worse this time. Patient has been able to get around and even drive, episodes last only a few seconds but have not resolved so came in for evaluation. No chest pain or shortness of breath.. Historical: - Allergies: 13:59 No Known Allergies; tm6 - PMHx: 13:59 Diabetes - NIDDM; Diabetes - NIDDM; Hypertension; tm6 - PSHx: 13:59 coronary stent (Hypertension); tm6 - Immunization history:: Client reports receiving the 2nd dose of the Covid vaccine. - Infectious Disease History:: Denies. - Social history:: Smoking status: Patient denies any tobacco usage or history of. Patient/guardian denies using alcohol. - Family history:: not pertinent. - Hospitalizations: : No recent hospitalization is reported. ROS: 14:18 Constitutional: Negative for fever, chills, and weight loss, Neck: Negative for injury, rn pain, and swelling, Cardiovascular: Negative for chest pain, palpitations, and edema, Respiratory: Negative for shortness of breath, cough, wheezing, and pleuritic chest pain, Abdomen/GI: Negative for abdominal pain, nausea, vomiting, diarrhea, and constipation, Back: Negative for injury and pain, MS/Extremity: Negative for injury and deformity, Skin: Negative for injury, rash, and discoloration, Neuro: Positive for dizziness Exam: 14:18 Constitutional: This is a well developed, well nourished patient who is awake, alert, rn and in no acute distress. Ambulatory to room without difficulty or assistance Head/Face: Normocephalic, atraumatic. Eyes: Pupils equal round and reactive to light, extra-ocular motions intact. Cardiovascular: Tachycardic, regular. No pulse deficits. Respiratory: Speaking full sentences, unlabored. No increased work of breathing, no retractions or nasal flaring. Abdomen/GI: Soft, non-tender MS/ Extremity: Pulses equal, no cyanosis. Neurovascular intact. Full, normal range of motion. Equal circumference. Neuro: Awake and alert, GCS 15, oriented to person, place, time, and situation. Cranial nerves II-XII grossly intact. Motor strength 5/5 in all extremities. Sensory grossly intact. Cerebellar exam normal. Normal gait. 14:45 ECG was reviewed by the Attending Physician. rn Vital Signs: 13:58 BP 167 / 97; Pulse 107; Resp 19; Temp 98.1(TE); Pulse Ox 98% on R/A; MAP 98 mmHg; bp Weight 98.88 kg; Height 5 ft. 3 in. ; Pain 0/10; 17:20 BP 141 / 78; Pulse 94; Resp 16; Pulse Ox 99% ; bp 13:58 Body Mass Index 38.62 (98.88 kg, 160.02 cm) bp 13:58 Pain Scale: Adult bp MDM: 13:26 Medical Screening Exam initiated rn 17:01 Differential diagnosis: CVA, generalized weakness, hypovolemia, idiopathic dizziness, rn TIA, vertigo. Data reviewed: vital signs, nurses notes, lab test result(s), EKG, radiologic studies, CT scan, and as a result, I will discharge patient. 17:15 Counseling: I had a detailed discussion with the patient and/or guardian regarding the rn historical points, exam findings, and any diagnostic results supporting the discharge/admit diagnosis, the presence of at least one elevated blood pressure reading (>120/80) during this emergency department visit, lab results, radiology results, the need for outpatient follow up, to return to the emergency department if symptoms worsen or persist or if there are any questions or concerns that arise at home. Response to treatment: the patient's symptoms have markedly improved after treatment, the patient's condition has returned to base line, the patient is now symptom free, and as a result, I will discharge patient. Special discussion: I discussed with the patient/guardian in detail that at this point there is no indication for admission to the hospital. It is understood, however, that if the symptoms persist or worsen the patient needs to return immediately for re-evaluation. Based on the history and exam findings, there is no indication for further emergent testing or inpatient evaluation. I discussed with the patient/guardian the need to see the neurologist for further evaluation of the symptoms. ED course: Patient feels much better, no acute findings in CT head or CT head angio or neck angio. Will discharge home as vertigo with as needed meclizine and neuro follow-up. I have personally reviewed all of the results, including but not limited to blood tests and imaging deemed necessary to safely discharge this patient at this time. All results given to and printed out for patient. I personally went over all the results with the patient and answered all questions. Patient will follow-up with PCP and or specialist as discussed. Return precautions given and understood.. 04/23 14:02 Order name: Basic Metabolic Panel; Complete Time: 14:58 rn 04/23 14:02 Order name: CBC with Diff; Complete Time: 14:58 rn 04/23 14:02 Order name: Magnesium; Complete Time: 14:58 rn 04/23 14:02 Order name: Protime (+inr); Complete Time: 14:58 rn 04/23 14:02 Order name: Ptt, Activated; Complete Time: 14:58 rn 04/23 14:02 Order name: Troponin High Sensitivity; Complete Time: 14:58 rn 04/23 14:02 Order name: CT Head Brain wo Cont; Complete Time: 16:57 rn 04/23 14:02 Order name: Neck Angio CT; Complete Time: 17:13 rn 04/23 14:11 Order name: Head angio; Complete Time: 16:57 EDMS 04/23 14:02 Order name: Cardiac monitoring; Complete Time: 14:25 rn 04/23 14:02 Order name: EKG - Nurse/Tech; Complete Time: 14:25 rn 04/23 14:02 Order name: IV Saline Lock; Complete Time: 14:25 rn 04/23 14:02 Order name: Labs collected and sent; Complete Time: rn 04/23 14:02 Order name: O2 Per Protocol; Complete Time: rn 04/23 14:02 Order name: O2 Sat Monitoring; Complete Time: 14: rn EC:45 Rate is 105 beats/min. Rhythm is regular. QRS [place] is Normal. NE interval is normal. rn QRS interval is normal. QT interval is normal. No Q waves. T waves are Normal. No ST changes noted. Clinical impression: Sinus tachycardia. Interpreted by me. Reviewed by me. Administered Medications: 14:38 Drug: Meclizine PO 50 mg PO once Route: PO; aa5 17:22 Follow up: Response: No adverse reaction bp 14:38 Drug: NS 0.9% IV 500 ml IV at calculated rate once; to be given as a bolus over 30 aa5 minutes Route: IV; Rate: calculated rate; Site: right antecubital; 17:22 Follow up: IV Status: Completed infusion; IV Intake: 500ml bp Disposition Summary: 04/23/24 17:17 Discharge Ordered Notes: Location: Home rn Problem: new rn Symptoms: have improved rn Condition: Stable rn Diagnosis - Dizziness and giddiness rn - Dehydration rn - Vertigo rn Followup: rn - With: Private Physician - When: As needed - Reason: Recheck today's complaints, Re-evaluation by your physician Discharge Instructions: - Discharge Summary Sheet rn - Dizziness rn - Vertigo rn - Dehydration, Adult, [id number] rn Forms: - Medication Reconciliation Form rn - Antibiotic aprn - Prescription Opioid Use rn - Patient Portal Instructions rn - Leadership Thank You Letter rn Prescriptions: - Meclizine 25 mg Oral Tablet - take 1 tablet ORAL route every 8 hours As needed; 30 tablet; Refills: 0, rn Product Selection Permitted Signatures: Dispatcher [employer] EDMS David Stevens MD MD rn Calderon, Audri, RN RN aa5 Blanquita Santoyo RN RN tm6 Christo Cornejo RN bp Corrections: (The following items were deleted from the chart) 14:03 14:03 Neck Angio+CT.RAD.BRZ ordered. EDMS EDMS
[2024-04-23 19:49] VITALS: TEMP 98.1
[2024-04-23 19:51] VITALS: BP 141/78; O2SAT 99
== END 2024-04-23 17:28 | disposition home or self-care (01) ==
LOC: ER 13:21
DX: R42 Dizziness and giddiness (principal); E86.0 Dehydration
CPT/HCPCS: 36415; 70450; 70496; 70498; 80048; 83735; 84484; 85025; 85610; 85730; 93005; J7040; J8597